=== PATIENT | female | born 1950 | race Asian ===

== ENCOUNTER 2022-03-12 05:55 | Day surgery (SDC) | payer MEDICARE, OTHER ==
[~2022-03-12] VITALS: Ht 160 cm; Wt 54.5 kg
[~2022-03-12 05:55] MED LIST: ASPIR-LOW81 MG PO; ASPIRIN EC81 MG PO; B COMPLETE1 EACH PO; CALCIUM600 MG PO; CENTRUM SILVER1 EAC3 PO; NORCO 5-325 TA1 EACH PO; TOPROL XL25 MG PO; VITAMIN B-121000 MC1 PO
--- NOTE | 2022-03-12 08:09 | NUR ---
03/12/22 0809 Lorri Dye 0804 PATIENT ARRIVES TO PACU UNRESPONSIVE TO PAIN. ORAL AIRWAY IN PLACE. RESP EVEN AND UNLABORED, MASK AT 10 LITERS, DECREASED TO 6 LITERS. PATIENT IS IN A SINUS RHYTHM WITH VERY FREQUENT PVCS, BASELINE PER CHUCK LUKE.
--- NOTE | 2022-03-12 18:26 | OR ---
[facility] [address], [place] [address] Signed DATE OF OPERATION: 03/12/2022 SURGEON: Chuck Matias MD PREOPERATIVE DIAGNOSES: 1. Family history of colon cancer (brother). 2. Episodic cardiac arrhythmia. POSTOPERATIVE DIAGNOSIS: Normal colon to cecum. PROCEDURE: Total colonoscopy to cecum. ANESTHESIA: Intravenous sedation; propofol infusion, Chuck Taylor CRNA. INDICATION: This 71-year-old [place] woman is a patient of Dr. India Hurtado and was referred for screening colonoscopy. Notably, her brother of colon cancer. She has no symptoms of bleeding, diarrhea, or constipation. Her last colonoscopy was in 2015, which was normal. The patient does have cardiac arrhythmia without symptoms; cardiac evaluation has shown no malignant arrhythmia. She is admitted at this time to undergo screening colonoscopy based on her family history. She understands the risks of bleeding, infection, and perforation. FINDINGS: The prep was excellent. Complete colonoscopy was undertaken to the cecum. Tortuosity of the colon was noted in the right side, but complete and full intubation of the cecum was accomplished showing no evidence of abnormality. There was no evidence of polyps, diverticular formation, colitis, or cancer. DESCRIPTION OF PROCEDURE: The patient was brought to the surgical endoscopy suite and placed in the lateral decubitus position, given intravenous sedation with full cardiopulmonary monitoring by the icer hand. Digital rectal examination was normal. An Olympus video colonoscope was passed in the rectum and manipulated throughout the colon. Passage beyond the hepatic flexure was slightly challenging requiring various body position changes, abdominal wall stabilization and so forth. Ultimately, the scope Electronically Signed By: CHUCK MATIAS MD 03/12/22 1826 PATIENT NAME: ALFRED GARCIA OPERATIVE REPORT DATE OF : 46 REPORT #: [id number] PHYSICIAN: CHUCK MATIAS MD PCP: KENNETH LOPEZ MD REPORT IS CONFIDENTIAL AND NOT TO BE RELEASED WITHOUT AUTHORIZATION [facility] [address] [place] [id number] Signed was passed to the cecum. The ileocecal valve and appendiceal orifice were entirely normal. The scope was then withdrawn from that point and examination throughout showed no sign of polyps, diverticular formation, colitis, or cancer. Retroflexed view of the rectum was normal as well. The scope was removed and the patient was taken to the recovery room in good condition. CONCLUDING DIAGNOSIS: Normal colon. PLAN: Recommend repeat colonoscopy in 5 years based on family history, sooner if symptoms should occur. She will return to the ongoing care of Dr. Hurtado. MD MICHELLE Carrillo/LUIS /[id number] cc: India Hurtado MD Copies: INDIA HURTADO MD ~ Electronically Signed By: CHUCK MATIAS MD 03/12/22 1826 PATIENT NAME: ALFRED GARCIA OPERATIVE REPORT DATE OF : 46 REPORT #: [id number] PHYSICIAN: CHUCK MATIAS MD PCP: KENNETH LOPEZ MD REPORT IS CONFIDENTIAL AND NOT TO BE RELEASED WITHOUT AUTHORIZATION
== END 2022-03-12 08:40 | disposition home or self-care (01) ==
LOC: DS 05:55 → OPS 05:55 → DS 03-13 10:00 → OPS 03-13 10:00
PROVIDERS: ATTEND Surgery
PROC: 0DJD8ZZ Inspection of Lower Intestinal Tract, Via Natural or Artificial Opening Endoscopic (ICD-10-PCS; principal; 2022-03-12 07:30)
DX: Z12.11 Encounter for screening for malignant neoplasm of colon (principal); D48.5 Neoplasm of uncertain behavior of skin; I49.49 Other premature depolarization; Z80.0 Family history of malignant neoplasm of digestive organs
CPT/HCPCS: J2250; J2704; J3010; J7121

== ENCOUNTER 2025-01-02 11:51 | Day surgery (SDC) | payer MEDICARE, OTHER ==
[2025-01-01 13:11] VITALS: BP 140/73
[~2025-01-02] VITALS: Ht 160 cm; Wt 52.7 kg
[~2025-01-02 11:51] MED LIST changes: +CEFAZOLIN SODIUM 2 GM/20 ML SYR IV SCH; +IBLOOD GLUCOSE TEST STRIP 1 EA TEST VI PRN; +LACTATED RINGER'S 1,000 ML IV SCH; +LIDOCAINE HCL 1% 5 ML SDV INJ ONE
[2025-01-02 12:06] VITALS: BP 127/61
[2025-01-02] MEDS ORDERED: propofoL 200 MG/20 ML VIAL ONE (14:47)
[2025-01-02] MEDS ORDERED: fentaNYL citrate 100 MCG/2 ML VIAL ONE (14:47)
[2025-01-02] MEDS ORDERED: ondansetron HCL 4 MG/2 ML VIAL ONE (14:47)
[2025-01-02] MEDS ORDERED: DEXAMETHASONE SOD PHOS 4 MG/ML VIAL ONE (14:47)
[2025-01-02] MEDS ORDERED: ACETAMINOPHEN 1,000 MG/100 ML VIAL ONE (14:47)
[2025-01-02] MEDS ORDERED: KETAMINE in NS 50 MG/5 ML SYR ONE (14:55)
[2025-01-02] MEDS ORDERED: TRANEXAMIC ACID 1,000 MG/10 ML AMP ONE (15:20)
[2025-01-02] MEDS ORDERED: FAMOTIDINE 20 MG/ 2 ML VIAL IV PRN (15:30)
[2025-01-02] MEDS ORDERED: ondansetron HCL 4 MG TAB PO PRN (15:30)
[2025-01-02] MEDS ORDERED: LACTATED RINGER'S 1,000 ML IV SCH (15:30)
[2025-01-02] MEDS ORDERED: ondansetron HCL 4 MG/2 ML VIAL IV PRN (15:30)
[2025-01-02] MEDS ORDERED: FAMOTIDINE 20 MG TAB PO PRN (15:30)
[2025-01-02] MEDS ORDERED: NALOXONE HCL 0.4 MG SYR IV PRN (15:30)
[2025-01-02] MEDS ORDERED: HYDROCODONE/ACETA 5/325 TAB PO PRN (15:30)
[2025-01-02 16:01] VITALS: BP 121/60
--- NOTE | 2025-01-02 16:46 | NUR ---
01/02/25 1646 Nora Strauss 1527 PT ARRIVED IN PACU SLEEPY WITH NO C/O'S. 1545 RESTING. REU. 1600 SITTING UP IN BED SIPPING ON WATER. 1605 EMESIS OF 10ML. AT BEDSIDE. ALL QUESTIONS ANSWERED. 1617 DC INSTRUCTIONS GIVEN. LEFT VIA W/C.
--- NOTE | 2025-01-05 14:31 | PATH ---
[facility] [address] [place], [place] [address] Signed SPECIMEN(S): A ENDOMETRIAL CURETTINGS SPECIMEN SOURCE: A. ENDOMETRIAL CURETTINGS CLINICAL HISTORY: PMB FINAL PATHOLOGIC DIAGNOSIS: A. Endometrial curettings, curettage: - Endometrioid adenocarcinoma, FIGO grade 1; see comment. COMMENT: P53 and MSI/MMR testing has been ordered and will be reported by addendum. POLE mutation analysis testing is recommended for this tumor type and is available as a send out test per request. As part of [facility]' Quality Improvement Program, this case was reviewed by another member of our pathology staff. A diagnostic alert was initiated by Dr. Ernandez on 01/05/2025. DDF MICROSCOPIC EXAMINATION: Histologic sections of all submitted blocks are examined by light microscopy. These findings, together with the gross examination, support the pathologic diagnosis. Properly controlled Michaela stains are performed in block A2. P16 shows mosaic pattern in tumor cells, ER/NH are positive and Vimentin is negative. DDF GROSS DESCRIPTION: The specimen, labeled and designated "Adonis Garcia, endometrial curettings," is received in formalin and consists of multiple fragments of soft pederson-red tissue measuring 8.4 x 2.7 x 0.5 cm in aggregate. Entirely submitted in (A1-A3). AB (under the direct supervision of a pathologist) The Gross Description was prepared using a voice recognition system. The report was reviewed for accuracy; however, sound-alike word errors, addition and/or deletions may occur. If there is any question about this report, please contact Client Services. ADDITIONAL NOTES: PATIENT NAME: ALFRED GARCIA PATHOLOGY DATE OF : 46 REPORT #: [id number] PHYSICIAN: KIMBERLY NOBLE PCP: KENNETH LOPEZ MD REPORT IS CONFIDENTIAL AND NOT TO BE RELEASED WITHOUT AUTHORIZATION [facility] [address] [place], [place] [address], [place] [address] Signed Immunohistochemical and/or in situ hybridization studies if performed in this case included appropriate positive controls that reacted as expected. This test was developed and its performance characteristics determined by [facility]. It has not been cleared or approved by the U.S. Food and Drug Administration. The FDA has determined that such clearance or approval is not necessary. This test is used for clinical purposes. It should not be regarded as investigational or for research. [facility] is certified under the Clinical Laboratory Improvement Amendments of 1988 (CLIA) as qualified to perform high complexity clinical laboratory testing. PERFORMING LABORATORY: Technical component was performed by [facility], [address] [place] [address] (CLIA# [id number]). Professional interpretation was performed by [facility] [address] [place] [id number] Diagnostician: Dominguez Ernandez DO Pathologist Electronically Signed 01/05/2025 Copies: ~ PATIENT NAME: ALFRED GARCIA PATHOLOGY DATE OF : 46 REPORT #: [id number] PHYSICIAN: KIMBERLY NOBLE PCP: KENNETH LOPEZ MD REPORT IS CONFIDENTIAL AND NOT TO BE RELEASED WITHOUT AUTHORIZATION
== END 2025-01-02 16:17 | disposition home or self-care (01) ==
LOC: OPS 11:51 → DSVR 11:51 → DS 11:52 → OPS 14:00 → DS 14:00 → OPS 16:17
PROVIDERS: ATTEND Obstetrics & Gynecology
PROC: 0UB98ZZ Excision of Uterus, Via Natural or Artificial Opening Endoscopic (ICD-10-PCS; principal; 2025-01-02 14:00)
DX: C54.1 Malignant neoplasm of endometrium (principal); N95.0 Postmenopausal bleeding
CPT/HCPCS: 00952; J0131; J0690; J1100; J2405; J2704; J3010; J3490; J7121